=== PATIENT | female | born 1990 | race Caucasian/White ===

== ENCOUNTER 2020-01-15 03:27 | Emergency (ER) | payer MEDICAID ==
[~2020-01-15] VITALS: Ht 167.6 cm; Wt 64.0 kg
[2020-01-15 04:03] LABS: HCG UR SG 1.035 (1.003-1.030)
[2020-01-15] MEDS ORDERED: AZITHROMYCIN 500 MG TABLET ONE (04:05)
[2020-01-15] MEDS ORDERED: CEFTRIAXONE 250 MG ONE (04:05)
[2020-01-15 04:06] LABS: MICROSCOPIC INDICATED
[2020-01-15 04:19] LABS: CLUE CELLS PRESENT (NONE SEEN); WET PREP WBCS FEW (FEW)
[2020-01-15] MEDS ORDERED: CEFTRIAXONE 250 MG IM ONE (04:30)
[2020-01-15] MEDS ORDERED: AZITHROMYCIN 500 MG TABLET PO ONE (04:30)
[2020-01-15 04:50] VITALS: BP 114/73
== END 2020-01-15 04:53 | disposition home or self-care (01) ==
LOC: ED 04:45
DX: N30.00 Acute cystitis without hematuria (principal); N76.0 Acute vaginitis; A74.9 Chlamydial infection, unspecified; A54.9 Gonococcal infection, unspecified
CPT/HCPCS: 81001; 81025; 87086; 87210; 87491; 87591; 87808; 96372; 99284; J0696